=== PATIENT | male | born 1965 | race Caucasian/White ===

== ENCOUNTER → 2016-10-15 | Outpatient (CLI) | payer BC ==
[2016-10-15 12:11] LABS: HEMATOCRIT 47.5 % (42.0-52.0); HEMOGLOBIN 16.1 g/dL (14.0-18.0); MEAN CORPUSCULAR HGB CONC 33.9 g/dL (33-37); MEAN PLATELET VOLUME 8.1 FL (7.4-12.2); RDW COEFFICIENT OF VARIATION 13.1 % (11.5-14.5); RED BLOOD COUNT 5.19 10^6/uL (4.70-6.10); WHITE BLOOD COUNT 7.08 10^3/uL (4.8-10.8)
--- NOTE | 2016-10-15 12:20 | DI ---
PA /LATERAL CHEST X-RAY, 10/15/2016 11:46 AM : Clinical History: Tobacco abuse. Previous Exam: None at this facility. There is no acute soft tissue or bony abnormality. Heart size is normal. There is no infiltrate or ef fusion but the lungs are hyperinflated. However, the diaphragms are not flattened and there is not an increased retrosternal airspace to classify this patient as having centrilobular emphysema. Mediasti nal structures are normal. There are no pulmonary nodules. Reading: Normal chest x-ray.
[2016-10-15 12:35] LABS: ASPARTATE AMINO TRANSFERASE 48 IU/L (21-57); BILIRUBIN,TOTAL 0.7 mg/dL (0.3-1.2); BLOOD UREA NITROGEN 12 mg/dL (7-22); BUN/CREATININE RATIO 13.33 (6-20); CALCIUM 9.8 mg/dL (8.7-10.7); CHLORIDE 103 meq/L (98-112); CREATININE 0.9 mg/dL (0.70-1.50); EST GLOMERULAR FILTRATION > 60 (>60 ml/min/1.73m(2)); GLUCOSE 98 mg/dL (78-110); HDL CHOLESTEROL 70 mg/dL (40-150); POTASSIUM 5.1 meq/L (3.8-5.2); SODIUM 139 meq/L (135-145); TOTAL PROTEIN 7.5 g/dL (6.1-8.0); TRIGLYCERIDES 41 mg/dL (44-200)
== END ==
LOC: RAD 11:56
PROVIDERS: ATTEND Family Medicine
DX: R63.4 Abnormal weight loss (principal); Z72.0 Tobacco use
CPT/HCPCS: 36415; 71020; 80053; 80061; 84443; 85027